=== PATIENT | male | born 1955 | race Caucasian/White ===

== ENCOUNTER 2016-03-18 10:47 | Emergency (ER) | payer OTHER ==
[2016-03-18] MEDS ORDERED: SODIUM CHLORIDE 0.9% 1000 ML SOL IV SCH (11:15)
[2016-03-18 11:45] LABS: ALBUMIN 3.5 gm/dl (3.4-5.0); CALCIUM 8.7 mg/dl (8.5-10.1); POTASSIUM 3.8 mMol/L (3.5-5.1)
[2016-03-18 12:00] LABS: BASOPHILS % (AUTO) 1 % (0-3); EOSINOPHILS % (AUTO) 1 % (0-9); HEMATOCRIT 42 % (39-53); MEAN CORPUSCULAR HGB CONC 34.2 gm/dl (32.0-36.0); MONOCYTES % (AUTO) 7.3 % (0-12); NEUTROPHILS % (AUTO) 72.7 % (37-80)
[2016-03-18] MEDS ORDERED: ACETAMINOPHEN 500 MG 500 MG TAB PO ONE (12:31)
[2016-03-18] MEDS ORDERED: ACETAMINOPHEN 500 MG 500 MG TAB ONE (12:37)
[2016-03-18] MEDS ORDERED: SODIUM CHLORIDE 0.9% FLUSH 10 ML SOL IV PRN (12:39)
[2016-03-18 13:15] LABS: APPEARANCE,URINE Clear; BILIRUBIN,URINE NEGATIVE (NEGATIVE); COLOR,URINE Yellow; GLUCOSE, URINE (UA) NEGATIVE (NEGATIVE); KETONES,URINE NEGATIVE (NEGATIVE); LEUKOCYTE ESTERASE ,URINE NEGATIVE (NEGATIVE); NITRATE,URINE NEGATIVE (NEGATIVE); OCCULT BLOOD,URINE NEGATIVE (NEG-TRACE); UROBILINOGEN,URINE 0.2 (0.2-1.0 EU)
[2016-03-18 13:37] LABS: RBC,URINE 0-2 (0-3AV/HPF)
[2016-03-18 16:37] VITALS: RESP 20; TEMP 99.4
[2016-03-18 16:38] VITALS: BP 124/78; PULSE 72; O2SAT 94
== END 2016-03-18 15:05 | disposition home or self-care (01) | DRG 948 ==
LOC: ED 10:47
DX: R53.1 Weakness (principal); C71.9 Malignant neoplasm of brain, unspecified; E87.1 Hypo-osmolality and hyponatremia; W19.XXXA Unspecified fall, initial encounter
CPT/HCPCS: 70460; 71020; 80053; 81001; 85025; 85610; 87040; 99285

== ENCOUNTER 2016-05-06 11:11 | Emergency (ER) | payer OTHER ==
[2016-05-06 11:44] VITALS: TEMP 98.5
[2016-05-06] MEDS ORDERED: SODIUM CHLORIDE 0.9% 1000ML 1,000 ML IV SCH (12:00)
[2016-05-06 12:02] LABS: BASOPHILS % (AUTO) 1 % (0-3); EOSINOPHILS % (AUTO) 1 % (0-9); HEMATOCRIT 35 % (39-53); MEAN CORPUSCULAR HGB CONC 36.3 gm/dl (32.0-36.0); MEAN CORPUSCULAR VOLUME 84 fL (80-100); MONOCYTES % (AUTO) 9.3 % (0-12); NEUTROPHILS % (AUTO) 63.9 % (37-80)
[2016-05-06] MEDS ORDERED: SODIUM CHLORIDE 0.9% FLUSH 10 ML SOL IV PRN (12:10)
[2016-05-06 12:14] LABS: ALBUMIN 2.9 gm/dl (3.4-5.0); CALCIUM 8.3 mg/dl (8.5-10.1); POTASSIUM 3.8 mMol/L (3.5-5.1)
[2016-05-06] MEDS ORDERED: DEXAMETHASONE 20 MG/5 ML (4 MG/ML SOL) PO ONE (13:03)
[2016-05-06] MEDS ORDERED: DEXAMETHASONE 20 MG/5 ML (4 MG/ML SOL) ONE (13:27)
[2016-05-06] MEDS ORDERED: BACITRACIN 500 U/GM OIN TOP ONE (15:12)
[2016-05-06 17:05] VITALS: BP 117/76; PULSE 98; RESP 20; O2SAT 97
== END 2016-05-06 15:14 | disposition home or self-care (01) | DRG 948 ==
LOC: ED 11:11
DX: R53.1 Weakness (principal); E87.1 Hypo-osmolality and hyponatremia; Z98.890 Other specified postprocedural states
CPT/HCPCS: 36415; 70450; 80053; 82962; 85025; 96365; 99283; 99284; J1100

== ENCOUNTER 2016-08-27 07:43 | Emergency (ER) | payer OTHER ==
[2016-08-27] MEDS ORDERED: LORAZEPAM 2 MG/ML SOL IV ONE ×4 (08:15→11:34)
[2016-08-27] MEDS: SODIUM CHLORIDE 0.9% FLUSH 10 ML SOL IV PRN ×4 (08:15→11:52)
[2016-08-27] MEDS ORDERED: LORAZEPAM 2 MG/ML SOL ONE ×4 (08:16→11:35)
[2016-08-27 08:32] LABS: APPEARANCE,URINE Clear; BILIRUBIN,URINE NEGATIVE (NEGATIVE); COLOR,URINE Yellow; GLUCOSE, URINE (UA) NEGATIVE (NEGATIVE); KETONES,URINE TRACE (NEGATIVE); LEUKOCYTE ESTERASE ,URINE NEGATIVE (NEGATIVE); NITRATE,URINE NEGATIVE (NEGATIVE); OCCULT BLOOD,URINE NEGATIVE (NEG-TRACE); PH,URINE 5.5
[2016-08-27 08:36] LABS: BASOPHILS % (AUTO) 1 % (0-3); EOSINOPHILS % (AUTO) 1 % (0-9); HEMATOCRIT 43 % (39-53); MEAN CORPUSCULAR HGB CONC 34.8 gm/dl (32.0-36.0); MEAN CORPUSCULAR VOLUME 85 fL (80-100); MONOCYTES % (AUTO) 5.5 % (0-12); NEUTROPHILS % (AUTO) 71.1 % (37-80)
[2016-08-27 08:40] LABS: ALBUMIN 3.2 gm/dl (3.4-5.0); CALCIUM 8.9 mg/dl (8.5-10.1); POTASSIUM 3.7 mMol/L (3.5-5.1)
[2016-08-27 08:54] LABS: RBC,URINE 0-1 (0-3AV/HPF); WBC,URINE 0-1 (0-5AV/HPF)
[2016-08-27] MEDS ORDERED: LEVETIRACETAM (PREMIX) 1 GM 1 GM/100 ML SOL IV ONE ×3 (09:42→10:30)
[2016-08-27] MEDS: LEVETIRACETAM (PREMIX) 1 GM 1 GM/100 ML SOL IV ONE ×2 (09:44)
[2016-08-27] MEDS ORDERED: METOPROLOL TARTRATE 5 MG/5 ML SOL IV ONE ×4 (09:59→11:32)
[2016-08-27 11:09] VITALS: RESP 18
[2016-08-27] MEDS ORDERED: METOCLOPRAMIDE HYDROCHLORIDE 5 MG/ML SOL IV ONE (11:28)
[2016-08-27 11:58] VITALS: TEMP 98.8; O2SAT 98
[2016-08-27 13:54] VITALS: BP 176/118; PULSE 109
== END 2016-08-27 13:15 | disposition short-term general hospital (02) ==
LOC: ED 07:43
DX: R56.9 Unspecified convulsions (principal); R40.2352 Coma scale, best motor response, localizes pain, at arrival to emergency department; R40.2132 Coma scale, eyes open, to sound, at arrival to emergency department; R40.2222 Coma scale, best verbal response, incomprehensible words, at arrival to emergency department
CPT/HCPCS: 99285 ×3; 70450; 71010; 80053; 81001; 84484; 85025; 93005; J1953 ×2; J2060 ×4; 36415

== ENCOUNTER 2016-11-17 22:05 | Emergency (ER) | payer OTHER ==
[2016-11-17 22:36] VITALS: TEMP 97.5
[2016-11-17 22:42] LABS: BASOPHILS % (AUTO) 1 % (0-3); EOSINOPHILS % (AUTO) 1 % (0-9); HEMATOCRIT 39 % (39-53); MEAN CORPUSCULAR HGB CONC 34.9 gm/dl (32.0-36.0); MEAN CORPUSCULAR VOLUME 84 fL (80-100); MONOCYTES % (AUTO) 10.2 % (0-12); NEUTROPHILS % (AUTO) 65.1 % (37-80)
[2016-11-17 23:02] LABS: ALBUMIN 2.9 gm/dl (3.4-5.0); ALT 30 IU/L (14-63); CALCIUM 8.7 mg/dl (8.5-10.1); GLOM FILT RATE 100 mL/min (>60); POTASSIUM 3.6 mMol/L (3.5-5.1); SODIUM 132 mMol/L (136-145)
[2016-11-17 23:34] LABS: APPEARANCE,URINE CLEAR; COLOR,URINE YELLOW
[2016-11-17 23:35] LABS: BILIRUBIN,URINE NEGATIVE (NEGATIVE); GLUCOSE, URINE (UA) NEGATIVE (NEGATIVE); KETONES,URINE NEGATIVE (NEGATIVE); LEUKOCYTE ESTERASE ,URINE NEGATIVE (NEGATIVE); NITRATE,URINE NEGATIVE (NEGATIVE); OCCULT BLOOD,URINE NEGATIVE (NEG-TRACE); RBC,URINE NEGATIVE (0-3AV/HPF); WBC,URINE NEGATIVE (0-5AV/HPF)
[2016-11-17] MEDS ORDERED: LEVETIRACETAM 250 MG TAB PO ONE (23:48)
[2016-11-17] MEDS ORDERED: LORAZEPAM 0.5 MG TAB PO ONE (23:49)
[2016-11-17] MEDS ORDERED: LORAZEPAM 0.5 MG TAB ONE (23:50)
[2016-11-18 00:36] VITALS: RESP 20
[2016-11-18 00:37] VITALS: BP 169/99; PULSE 96; O2SAT 96
== END 2016-11-18 00:20 | disposition short-term general hospital (02) ==
LOC: ED 22:05
DX: R47.81 Slurred speech (principal); R41.0 Disorientation, unspecified; R26.81 Unsteadiness on feet; R53.1 Weakness; Z85.841 Personal history of malignant neoplasm of brain; R29.810 Facial weakness
CPT/HCPCS: 36415; 70450; 80053; 81001; 84484; 85025; 85610; 99291